=== PATIENT | female | born 1955 | race American Indian/Alaskan Native ===

== ENCOUNTER → 2017-04-30 | Outpatient (CLI) | payer MEDICARE, MEDICAID ==
[~2017-04-30] MED LIST: ASA CHILDREN'S81 MG PO; CELEXA40 MG PO; COZAAR DPS50 MG PO; DELTASONE DPS5 MG PO; FOLVITE-DPS1 MG PO; HUMIRA40 MG/0.1 SQ; HYDROCODONE 7.7.5 MG PO; INVOKANA300 MG PO; METHOTREXATE2.5 MG PO; MOBIC DPS7.5 MG PO; PLAQUENIL DPS200 MG PO; PRILOSEC DPS20 MG PO; VITAMIN D1000 UNI1 PO; ZOCOR DPS20 MG PO
== END | disposition home or self-care (01) ==
LOC: RAD.S 15:13
DX: Z12.31 Encounter for screening mammogram for malignant neoplasm of breast (principal); R92.1 Mammographic calcification found on diagnostic imaging of breast